=== PATIENT | male | born 2000 | race Caucasian/White ===

== ENCOUNTER 2019-10-07 22:22 | Emergency (ER) | payer OTHER ==
[~2019-10-07] VITALS: Ht 167.6 cm; Wt 56.7 kg
[2019-10-07 22:33] VITALS: BP 133/60
--- NOTE | 2019-10-07 22:49 | ER.PDOC ---
General Chief Complaint: Headache Stated Complaint: MIGRAINE Time seen by MD: 22:42 Source: patient Exam Limitations: no limitations History of Present Illness Initial Comments Migraine headache for 4 hours. Has had headaches on and off for Months. Has never had a CT scan done and came to be checked. Timing/Duration: 4-6 hours Severity/Quality: moderate Associated Symptoms: sensitivity to light Prior symptoms/Treatment: Similar symptoms previous Allergies: Coded Allergies: erythromycin base (Verified Allergy, Unknown, Rash, 12/09/17) Past Medical History Surgical History: no surgical history Social History Alcohol Use: none Drug Use: none Review of Systems Constitutional: no symptoms reported Eyes: see HPI Respiratory: no symptoms reported Cardiovascular: no symptoms reported Gastrointestinal: no symptoms reported Musculoskeletal: no symptoms reported All Other Systems: Reviewed and Negative Physical Exam General Appearance: No Apparent Distress, WD/WN Neck: nml inspection, Supple Cardiovascular: Normal Peripheral Pulses, Regular Rate, Rhythm, No Edema, No Gallop, No JVD, No Murmur Respiratory: chest non-tender, lungs clear, normal breath sounds, no respiratory distress, no accessory muscle use Gastrointestinal: Normal Bowel Sounds, No Organomegaly, No Pulsatile Mass, Non Tender, Soft Back: Normal Inspection, No CVA Tenderness, No Vertebral Tenderness Extremities: Normal Range of Motion, Non-Tender, Normal Inspection, No Pedal Edema, No Calf Tenderness, Normal Capillary Refill Psychiatric: Alert, Oriented x 3 Cranial Nerves: Normal Hearing, Normal Speech, PERRL Motor/Sensory: No Motor Deficit, No Sensory Deficit, No Pronator Drift, Negative Babinski's Sign Skin: Warm/Dry, Normal Color Results/Orders Results/Orders Orders - CHRIS HARE MD Ct Head Wo Contrast (10/07/19 22:41) Vital Signs Date Time Temp Pulse Resp B/P (MAP) Pulse Ox O2 Delivery O2 Flow Rate FiO2 10/07/19 22:33 98.1 90 16 10/07/19 22:33 98.1 90 16 97 10/07/19 22:33 98.1 90 16 133/60 (84) 97 Room Air EKG/XRAY/CT/US CT Comments: No acute intracranial abnormality Course Sepsis Screening Results: Posi: POSITIVE SEPSIS RISK Duration or Total Time Spent w: 30 min Vitals & review Data Vital Sign - Last 24 Hours 10/07/19 10/07/19 10/07/19 22:33 22:33 22:33 Temp 98.1 98.1 98.1 Pulse 90 90 90 Resp 16 16 16 B/P (MAP) 133/60 (84) Pulse Ox 97 97 O2 Delivery Room Air Sepsis Infection Criteria Pres: None O2 Sat by Pulse Oximetry: 97 Departure Time of Disposition: 23:12 Disposition: 01 HOME, SELF-CARE Impression: Primary Impression: Migraine Condition: Stable Referrals: PCP,UNKNOWN (PCP) PRIMARY CARE PROVIDER Additional Instructions: Excedrin Migraine OTC F/U with your PCP next week Return to ED if worsening symptoms or concerns Duration or Time Spent with Pa: 30 mins Problem Qualifiers Primary Impression: Migraine Migraine type: unspecified Status migrainosus presence: with status migrainosus Intractability: not intractable Qualified Codes: G43.901 - Migraine, unspecified, not intractable, with status migrainosus CHRIS HARE MD Oct 07, 2019 22:49
--- NOTE | 2019-10-07 23:09 | DIREP ---
PROCEDURE:CT HEAD OR BRAIN W/O CONTRAST COMPARISON:None. INDICATIONS:Headache TECHNIQUE:CT images were created without intravenous contrast. FINDINGS: VENTRICLES:The ventricles are normal in size and configuration. CEREBRUM:Normal cerebral morphology with appropriate manning white matter differentiation. CEREBELLUM:Negative. BRAINSTEM:Negative. BASAL CISTERNS:Negative. HEMORRHAGE:No MASS LESION:No ACUTE INFARCT:No SKULL:Normal. SINUSES:Normal. OTHER:None CONCLUSION:Normal examination. Dictated by: Jaiden Campuzano M.D. on 10/07/2019 at 11:07 PM
== END 2019-10-07 23:15 | disposition home or self-care (01) ==
LOC: ER 22:22
DX: G43.901 Migraine, unspecified, not intractable, with status migrainosus (principal); Z88.1 Allergy status to other antibiotic agents
CPT/HCPCS: 70450; 99284

== ENCOUNTER → 2021-06-27 | Outpatient (CLI) | payer OTHER ==
--- NOTE | 2021-06-29 17:07 | DIREP ---
PROCEDURE:MR KNEE WITHOUT CONTRAST [Left] TECHNIQUE:Axial proton density fat sat; coronal T1 and inversion recovery; sagittal proton density, proton density fat sat and T2 weighted sequences were obtained. COMPARISON:[facility], CT, CT LOWER EXTREMITY-LT W/O, 12/11/2020, 03:36 PM. INDICATIONS:LEFT ANTERIOR KNEE PAIN FINDINGS: Menisci: The medial and lateral menisci are intact. Cruciate ligaments: The anterior and posterior cruciate ligaments are normal. Bones and joint space: The amount of joint fluid is within physiologic range. Previously seen lipoma hemarthrosis has resolved. There are no loose bodies. There is lack of osseous union of a fracture along the lateral aspect of the lateral femoral condyle with the triangular fragment measuring 1.32 x 0.43 cm (cc by medial-lateral) on coronal series 601, image 20. This was present on previous study. The articular cartilage in all 3 compartments is intact. Collateral ligaments: The medial and lateral collateral ligaments are normal. Extensor mechanism: The quadriceps and patellar tendons are normal. The patella is intact. There is loss of articular cartilage along the medial patellar facet with underlying osseous irregularity measuring 1.04 cm medial-lateral series 301, image 28. The medial and lateral retinacula are intact. Edematous changes are present at the attachment site of the medial patellofemoral retinaculum series 301, image 27. The pre-femoral, suprapatellar and infrapatellar fat pads are normal. There is no prepatellar or infrapatellar bursitis. Miscellaneous: The muscles and tendons about the knee are intact. The neurovascular structures are normal. The tibiofibular joint is normal. There is no Roy's cyst. CONCLUSION:The findings are consistent with the history of prior patellofemoral lateral dislocation with subsequent reduction. There is incomplete osseous union of a bone fragment along the lateral aspect of the lateral femoral condyle. There is loss of articular cartilage with osseous irregularity in the central median ridge of the patella. Edematous change remains at the attachment site of the medial patellofemoral retinaculum into the medial patella consistent with progression toward healing. Dictated by: Gab Otero M.D. on 06/29/2021 at 04:46 PM
== END | disposition home or self-care (01) ==
LOC: RAD 13:36
PROVIDERS: ATTEND Nurse Practitioner Family
DX: M25.562 Pain in left knee (principal)
CPT/HCPCS: 73721

== ENCOUNTER → 2021-10-31 | Outpatient (CLI) | payer OTHER ==
--- NOTE | 2021-11-04 23:32 | PCM.ECHO ---
APPROVED REPORT EXAM: Comprehensive 2D, Doppler, and color-flow Echocardiogram. Patient Location: OUT-PATIENT Indications Surgical Clearance 2D Dimensions LVOT Diameter 2.75 (1.8-2.4cm) LVEF(%) 65.15 (>50%) M-Mode Dimensions Left Atrium(MM) 3.15 (2.5-4.0cm) IVSd 0.70 (0.7-1.1cm) Aortic Root 3.30 (2.2-3.7cm) LVDd 6.35 (4.0-5.6cm) PWd 1.20 (0.7-1.1cm) MV EPSS 1.51 (<0.5cm) IVSs 1.20 cm FS (%) 35.10 % LVDs 4.10 (2.0-3.8cm) ESV(Teich) 75.04 ml PWs 1.30 cm LVEF(%) 63.37 (>50%) Volumes Biplane 2D LV Volumes Biplane 2D LA Volumes LVEDv A4C 130.88 mL LA ESV Index LVESv A4C 45.60 mL Aortic Valve AoV Peak Daniel. 2.90 m/s AoV VTI 70.15 cm AO Peak GR. 34.30 mmHg AO Mean GR. 21.25 mmHg LVOT VTI 29.35 cm LVOT Peak Daniel. 1.14 m/s JOHANNA(VTI)/BSA 2.49 cm2/m2 JOHANNA (VTI) 2.49 cm2 AI P 1/2 Time 345.60 ms Mitral Valve MV E Velocity 1.10m/s MR Peak Gr. 5.05mmHg MV A Velocity 0.60m/s E/A Ratio 1.8 TDI E/Lateral E' 0.0 E/Medial E' 0.0 E/Septal E 0.0 Pulmonary Valve PV Peak Velocity 0.60m/s PV Peak Grad. 1.50mmHg RVOT VTI 13.38cm Tricuspid Valve TR P. Velocity 1.90m/s RAP ESTIMATE 10.00mmHg TR Peak Gr. 15.01mmHg RVSP 25.01mmHg LEFT VENTRICLE Left ventricle is moderately dilated. The left ventricular systolic function is normal. The left ventricular ejection fraction is within the normal range. There is normal left ventricular wall thickness. There is normal LV segmental wall motion. There is no ventricular septal defect visualized. No left ventricle thrombus noted on this study. LVEF is 60-65%. RIGHT VENTRICLE The right ventricle is normal size. The right ventricular systolic function is normal. There is normal right ventricular wall thickness. ATRIA The left atrium size is normal. The right atrium size is normal. The interatrial septum is intact with no evidence for an atrial septal defect. AORTIC VALVE The aortic valve is normal in structure. Aortic valve is probably trileaflet. There is no aortic valvular stenosis. Severe aortic regurgitation. There is no aortic valvular vegetation. MITRAL VALVE The mitral valve is normal in structure. There is no mitral valve stenosis. Mild mitral regurgitation. There is no evidence of mitral valve vegetations. TRICUSPID VALVE The tricuspid valve is normal in structure. There is no tricuspid valve stenosis. Mild tricuspid regurgitation. There is no tricuspid valve vegetations. PULMONIC VALVE Pulmonic valve is not well visualized. There is no pulmonic valvular stenosis. There is no pulmonic valvular regurgitation. GREAT VESSELS The aortic root is normal in size. Pulmonary artery is not well visualized. Aortic arch is not well visualized. The IVC is normal in size and collapses >50% with inspiration. PERICARDIUM There is no pericardial effusion. There is no pleural effusion. Other Information Study Quality: Fair Further Testing Further Testing : For further evaluation CHIN is recommended. <Conclusion> The left ventricular systolic function is normal. LVEF is 60-65%. Left ventricle is moderately dilated. Severe aortic regurgitation. Mild mitral regurgitation. Mild tricuspid regurgitation. Aortic valve is probably trileaflet. Electronically signed by : GRANT LEE. 11/04/2021 23:32:22
== END | disposition home or self-care (01) ==
LOC: RT 11:30
PROVIDERS: ATTEND Internal Medicine Interventional Cardiology
DX: I08.3 Combined rheumatic disorders of mitral, aortic and tricuspid valves (principal)
CPT/HCPCS: 93306